=== PATIENT | male | born 1945 | race African-American/Black ===

== ENCOUNTER → 2017-02-21 | Outpatient (CLI) | payer MEDICARE, OTHER ==
[2017-02-21 08:09] LABS: ABSOLUTE EOSINOPHILS # (AUTO) 0.1 10^3/uL (0.0-0.6); ABSOLUTE LYMPHOCYTES (AUTO) 1.9 10^3/uL (0.5-4.7); ABSOLUTE MONOCYTES (AUTO) 0.9 10^3/uL (0.1-1.4); BASOPHILS % (AUTO) 0.7 % (0-2); EOSINOPHILS % (AUTO) 1.5 % (0-6); HEMATOCRIT 35.2 % (37.9-51.0); HGB HCT DIFFERENCE -2.2; LYMPHOCYTES % (AUTO) 32.2 % (13-45); MEAN CORPUSCULAR HEMOGLOBIN 25.4 pg (27.0-33.4); MEAN CORPUSCULAR HGB CONC 31.3 g/dL (32.0-36.0); MEAN CORPUSCULAR VOLUME 81 fl (80-97); MONOCYTES % (AUTO) 14.8 % (3-13); RED BLOOD COUNT 4.33 10^6/uL (4.35-5.55); RED CELL DISTRIBUTION WIDTH 16.4 % (11.5-14.0); SEGMENTED NEUTROPHILS % (AUTO) 50.8 % (42-78); WHITE BLOOD COUNT 5.9 10^3/uL (4.0-10.5)
[2017-02-21 08:47] LABS: ALANINE AMINOTRANSFERASE 21 U/L (21-72); ALBUMIN 4.1 g/dL (3.5-5.0); ALKALINE PHOSPHATASE 76 U/L (38-126); ANION GAP 11 (5-19); ASPARTATE AMINO TRANSFERASE 24 U/L (17-59); BILIRUBIN,DIRECT 0.2 mg/dL (0.0-0.4); BILIRUBIN,TOTAL 0.6 mg/dL (0.2-1.3); BLOOD UREA NITROGEN 16 mg/dL (7-20); CALCIUM 9.2 mg/dL (8.4-10.2); CARBON DIOXIDE 28 mmol/L (22-30); CHLORIDE 105 mmol/L (98-107); CREATININE RESULT 1.27 mg/dL (0.52-1.25); GLUCOSE 111 mg/dL (75-110); POTASSIUM 3.3 mmol/L (3.6-5.0); SODIUM 144.1 mmol/L (137-145); TOTAL PROTEIN 7.6 g/dL (6.3-8.2)
[2017-02-21 09:17] LABS: CARCINOEMBRYONIC ANTIGEN 40.3 ng/mL (<3.0)
== END ==
LOC: LAB 07:39
PROVIDERS: ATTEND Surgery
DX: K63.5 Polyp of colon (principal)
CPT/HCPCS: 36415; 80048; 80076; 82378; 85025

== ENCOUNTER → 2017-02-28 | Outpatient (CLI) | payer MEDICARE, OTHER ==
--- NOTE | 2017-02-28 08:39 | RADIOLOGY REPORT (SQ) ---
EXAM DESCRIPTION: CT CHEST WITHOUT; CT ABD/PELVIS WITH IV ORAL COMPLETED DATE/TIME: 02/28/2017 7:48 am; 02/28/2017 8:08 am REASON FOR STUDY: POLYP OF COLON (K63.5) K63.5 POLYP OF COLON COMPARISON: MRCP 11/29/2015 [facility] MRI abdomen 05/05/2014 CONTRAST TYPE AND DOSE: contrast/concentration: Isovue 370.00 mg/ml; Total Contrast Delivered: 88.0 ml; Total Saline Delivered: 69.0 ml RENAL FUNCTION: Creatinine 1.3 TECHNIQUE: CT scan of the chest performed without intravenous contrast injection. Images reviewed with lung, soft tissue and bone windows. Reconstructed coronal and sagittal MPR image s reviewed. All images stored on PACS. CT scan of the abdomen and pelvis performed with intravenous and with oral contrastusing helical scan manuel technique with dynamic intravenous contrast injection. Images reviewed with lung, soft tissue a nd bone windows. Reconstructed coronal and sagittal MPR images reviewed. Delayed images for evaluat ion of the urinary system also acquired and evaluated. All images stored on PACS. All CT scanners at this facility use dose modulation, iterative reconstruction, and/or weight based d osing when appropriate to reduce radiation dose to as low as reasonably achievable (ALARA). [facility]: Dose Right [facility]: CareDose [facility]: Dose Right [facility]: Teradose 4D [facility]: [employer] RADIATION DOSE: Up-to-date CT equipment and radiation dose reduction techniques were employed. CTDIv ol: 8.9 mGy. DLP: 317 mGy-cm.; Up-to-date CT equipment and radiation dose reduction techniques were e mployed. CTDIvol: 5.8 - 6.6 mGy. DLP: 636 mGy-cm. . LIMITATIONS: None. FINDINGS: CHEST: LUNGS AND PLEURA: Obstructive lung disease. Bandlike scarring right base just above the right hemidi aphragm. No worrisome pulmonary nodules. No pleural effusion. No pneumothorax. HILAR AND MEDIASTINAL STRUCTURES: No identified masses or abnormal nodes. Small hiatal hernia HEART AND VASCULAR STRUCTURES: No aneurysm or dissection. No central pulmonary emboli. No pericardi al effusion. Minimal coronary artery calcification. HARDWARE: None. THYROID AND OTHER SOFT TISSUES: No masses. No adenopathy. BONES: No significant finding. OTHER: No other significant finding. ABDOMEN AND PELVIS: LIVER: Multiple low-attenuation liver masses are present worrisome for metastatic disease, the larges t is along the subdiaphragmatic right lobe liver 2.5 cm in size. SPLEEN: Normal size. No focal lesions. PANCREAS: No masses. No significant calcifications. No adjacent inflammation or peripancreatic fluid collections. Pancreatic duct is mildly dilated, similar compared to previous MRI exams. GALLBLADDER: Surgically absent ADRENAL GLANDS: No significant masses or asymmetry. RIGHT KIDNEY AND URETER: No solid masses. No significant calcification. No hydronephrosis or hydroure ter. LEFT KIDNEY AND URETER: No solid masses. 2.7 cm left upper pole renal cyst, 5.5 cm left midpole elijah l cyst, 6 cm left lower pole renal cyst. No significant calcification. No hydronephrosis or hydroure ter. AORTA AND VESSELS: No aneurysm. No dissection. Renal arteries, SMA, celiac without stenosis. RETROPERITONEUM: No retroperitoneal adenopathy, hemorrhage or masses. BOWEL AND PERITONEAL CAVITY: A 4 cm mass is present ascending colon about 7 cm distal to the ileoceca l valve. This is best shown on axial image 44 and coronal image 15. There is an adjacent 1.6 x 0.8 cm right pericolic lymph node on axial image 47. There is oral contrast throughout the remainder of the gastrointestinal tract which is otherwise unre markable. APPENDIX: Normal. ABDOMINAL WALL: No masses. No hernias. BONES: No significant or acute findings. PELVIS: Trace physiologic cul-de-sac pelvic fluid. Bladder, prostate unremarkable. No pelvic adenop athy. No other significant finding. IMPRESSION: No CT evidence of metastatic disease to the chest 4 cm ascending colon mass with liver metastatic lesions. TECHNICAL DOCUMENTATION: JOB ID: [id number] Quality ID # [id number]: Final reports with documentation of one or more dose reduction techniques (e.g., Au tomated exposure control, adjustment of the mA and/or kV according to patient size, use of iterative reconstruction technique) 2010 [employer]- All Rights Reserved
== END ==
LOC: RAD 07:15
PROVIDERS: ATTEND Surgery
DX: K63.5 Polyp of colon (principal); J44.9 Chronic obstructive pulmonary disease, unspecified
CPT/HCPCS: 71250; 74177

== ENCOUNTER 2018-08-17 13:14 | Inpatient (IN) | payer OTHER, MEDICARE ==
--- NOTE | 2018-08-17 14:48 | ER Document Report ---
ED General - General Mode of Arrival: Medic Information source: Patient, Relative TRAVEL OUTSIDE OF THE [place] IN LAST 30 DAYS: No <KERRY JOEL - Last Filed: 08/17/18 23:37> <AJITH CULP - Last Filed: 08/17/18 23:44> - General Chief Complaint: General Weakness Stated Complaint: WEAKNESS Time Seen by Provider: 08/17/18 14:24 Notes: 72-year-old male with stage IV colorectal cancer with metastasis to the liver, intra-abdominal nodes, and intrahepatic bile ducts that presents today with complaints of shortness of breath and abdominal distention. Patient is currently followed in [place] by oncologist Dr. Hollingsworth and he is taking chemo by mouth. at bedside states that the patient has not been eating for 1 week other than [employer] formula powder because he is not hungry although he is still requesting water. Patient does endorse the fact that he is eating because he does not feel hungry. Patient states that he has been having normal bowel movements and passing gas. Patient states his abdomen and legs began swelling 3 weeks ago which has increased since gradually since onset. Patient states he feels generally weak and shaky when he stands up. Patient denies any nausea or vomiting. (KERRY JOEL) - Related Data Allergies/Adverse Reactions: No Known Allergies Allergy (Verified 08/17/18 13:34) Past Medical History - General Information source: Patient - Social History Smoking Status: Former Smoker Chew tobacco use (# tins/day): No Frequency of alcohol use: None Drug Abuse: None Lives with: Family Family History: Reviewed & Not Pertinent Patient has suicidal ideation: No Patient has homicidal ideation: No - Past Medical History Cardiac Medical History: Reports: Hx Hypertension Malignancy Medical History: Reports Hx Colorectal Cancer - stage IV with metastasis to the liver with intraabdominal nodes Past Surgical History: Reports: Hx Bowel Surgery - colon - Immunizations Hx Diphtheria, Pertussis, Tetanus Vaccination: Yes <KERRY JOEL - Last Filed: 08/17/18 23:37> Review of Systems - Review of Systems Constitutional: No symptoms reported EENT: No symptoms reported Cardiovascular: No symptoms reported Respiratory: See HPI, Short of breath Gastrointestinal: See HPI, Abdomen distended, Abdominal pain. denies: Diarrhea, Nausea, Vomiting, Constipation - states he has been having normal bowel movements Genitourinary: No symptoms reported Male Genitourinary: No symptoms reported Musculoskeletal: No symptoms reported Skin: No symptoms reported Hematologic/Lymphatic: No symptoms reported Neurological/Psychological: No symptoms reported -: Yes All other systems reviewed and negative <KERRY JOEL - Last Filed: 08/17/18 23:37> Physical Exam <KERRY JOEL - Last Filed: 08/17/18 23:37> - Vital signs Vitals: Temp Pulse Resp BP Pulse Ox 97.5 F 96 18 112/62 95 08/17/18 13:30 08/17/18 13:30 08/17/18 13:30 08/17/18 13:30 08/17/18 13:30 - Notes Notes: PHYSICAL EXAM GENERAL: Alert, interacts well. Appears uncomfortable. Cachectic. HEAD: Normocephalic, atraumatic. EYES: Pupils equal, round, and reactive to light. Extraocular movements intact. ENT: Oral mucosa moist, tongue midline. NECK: Full range of motion. Supple. Trachea midline. LUNGS: Clear to auscultation bilaterally, no wheezes, rales, or rhonchi. No respiratory distress. HEART: Regular rate and rhythm. No murmurs, gallops, or rubs. ABDOMEN: Semi-firm, not rigid, distended, epigastric and suprapubic tenderness with palpation, tympanic to percussion, high pitched bowel sounds present in all four quadrants. EXTREMITIES: Moves all 4 extremities spontaneously. 2+ pitting edema bilaterally. Radial and dorsalis pedis pulses 2/4 bilaterally. No cyanosis. NEUROLOGICAL: Alert and oriented x3. Normal speech. PSYCH: Normal affect, normal mood. SKIN: Warm and dry. No rashes or lesions noted. (KERRY JOEL) Course - Laboratory Result Diagrams: 08/17/18 16:20 08/17/18 16:20 <KERRY JOEL - Last Filed: 08/17/18 23:37> - Laboratory Result Diagrams: 08/17/18 16:20 08/17/18 16:20 <AJITH CULP - Last Filed: 08/17/18 23:44> - Re-evaluation Re-evalutation: 08/17/18 16:05 Raymond Bauer our retail assistant store manager has spoken with the patient and the family, she did find that there are inpatient hospice beds available however the patient has now twice stated once when asked by me and once when asked by Raymond Bauer that he does not want to go to hospice. At this point his and friend both feel that he would be better served in hospice however the patient is adamant that he does not want to go to hospice at this time. We have provided them with resources on how to contact hospice in the future should he want to go but at present we will continue with medical workup. Patient's abdominal x-ray does show gaseous does not distention of the large intestine, this could be obstructive or from a large amount of stool given his opioid therapy or from sigmoid volvulus, we will trial a soap suds enema with mineral oil first and if this does not relieve his pain we will proceed with CAT scan. Patient also has a right lower lobe pneumonia versus atelectasis. We will start antibiotics for this. 08/17/18 22:35 No significant relief from the enema, abdomen is still distended, patient states he feels a little bit better but there is no. CT scan continues to demonstrate bibasilar pleural effusions greater on the right than the left and pneumonia in the right lung base, innumerable masses through the liver consistent with extensive metastatic disease, large amount of liquefied stool within the remaining colon, gas and stool in the rectal vault, small bowel is not distended, somewhat diffuse gaseous distention of the colon without discrete transition point favoring colonic ileus with partial or incomplete obstruction not excluded entirely. Patient will be discussed with hospitalist for possible admission. 08/17/18 23:42 Dr. Benz agrees to admit the patient to his service on the telemetry care unit. (AJITH CULP) - Vital Signs Vital signs: Temp Pulse Resp BP Pulse Ox 97.5 F 96 18 92/68 L 92 08/17/18 13:30 08/17/18 13:30 08/17/18 13:30 08/17/18 23:14 08/17/18 19:00 - Laboratory Laboratory results interpreted by me: 08/17/18 08/17/18 08/17/18 16:20 16:20 22:10 WBC 13.2 H RDW 17.6 H Plt Count 133 L Seg Neuts % (Manual) 82 H Lymphocytes % (Manual) 8 L Abs Neuts (Manual) 10.8 H Carbon Dioxide 19 L BUN 82 H Creatinine 1.71 H Est GFR ( Amer) 48 L Est GFR (Non-Af Amer) 39 L Glucose 147 H Total Bilirubin 8.2 H Direct Bilirubin 6.8 H AST 191 H Alkaline Phosphatase 346 H Albumin 2.9 L Urine Urobilinogen 2.0 H Discharge <KERRY JOEL - Last Filed: 08/17/18 23:37> - [facility]: Telemetry <AJITH CULP - Last Filed: 08/17/18 23:44> - Discharge Clinical Impression: Stage IV carcinoma of colon Right lower lobe pneumonia Qualifiers: Pneumonia type: due to unspecified organism Qualified Code(s): J18.1 - Lobar pneumonia, unspecified organism Acute renal failure Qualifiers: Acute renal failure type: unspecified Qualified Code(s): N17.9 - Acute kidney failure, unspecified Condition: Fair Disposition: ADMITTED INPATIENT [facility]errals: [facility] [[facility]] - Follow up as needed Scribe Attestation: 08/17/18 23:44 I personally performed the services described in the documentation, reviewed and edited the documentation which was dictated to the scribe in my presence, and it accurately records my words and actions. (AJITH CULP) Scribe Documentation - Scribe Written by Sanaz:: Sanaz Dasilva, 08/17/2018 1556 acting as scribe for :: Stephen <KERRY JOEL - Last Filed: 08/17/18 23:37>
[2018-08-17] MEDS ORDERED: HYDROMORPHONE HCL INJ/PF 2 MG/ML AMPULE IV ONE ×2 (14:55→20:37)
--- NOTE | 2018-08-17 15:44 | RADIOLOGY REPORT (SQ) ---
EXAM DESCRIPTION: CHEST 2 VIEWS COMPLETED DATE/TIME: 08/17/2018 3:25 pm REASON FOR STUDY: SOB COMPARISON: CT abdomen and pelvis 02/28/2017 and chest radiograph 06/01/2013 EXAM PARAMETERS: NUMBER OF VIEWS: two views TECHNIQUE: Digital Frontal and Lateral radiographic views of the chest acquired. RADIATION DOSE: NA LIMITATIONS: none FINDINGS: LUNGS AND PLEURA: Low lung volumes with right lower lobe atelectasis versus consolidation. No pneumothorax. MEDIASTINUM AND HILAR STRUCTURES: No masses or contour abnormalities. HEART AND VASCULAR STRUCTURES: Heart normal size. No evidence for failure. BONES: No acute findings. HARDWARE: A left anterior chest wall Port-A-Cath terminates in the region of the cavoatrial junction. OTHER: The splenic flexure and descending colon are gas distended. IMPRESSION: 1. Low lung volumes with right lower lobe consolidation versus atelectasis. 2. Gaseous distension of the splenic flexure and descending colon. TECHNICAL DOCUMENTATION: JOB ID: [id number] [employer]- All Rights Reserved Reading location - IP/workstation name: [email or web address]
--- NOTE | 2018-08-17 15:51 | RADIOLOGY REPORT (SQ) ---
EXAM DESCRIPTION: ABDOMEN 2 VIEWS COMPLETED DATE/TIME: 08/17/2018 3:24 pm REASON FOR STUDY: abdominal distention COMPARISON: CT abdomen and pelvis with intravenous and oral contrast 02/28/2017. NUMBER OF VIEWS: Two views. TECHNIQUE: Supine and erect/decubitus radiographic images of the abdomen acquired. LIMITATIONS: None. FINDINGS: FREE AIR: No pneumoperitoneum. . LUNG BASES: Right basilar infiltrate. LARGE AND SMALL BOWEL: There is evidence of gaseous distension of the descending colon and proximal sigmoid colon. Gas within the transverse colon is seen. Scattered small bowel gas is noted. Surgic al clips right abdomen. No free intraperitoneal air. The bowel gas pattern is similar to findings n oted on CT abdomen and pelvis 02/28/2017. CALCIFICATIONS: No suspicious calcifications. SOFT TISSUES: No gross mass or suggestion of organomegaly. HARDWARE: None in the abdomen. BONES: No acute fracture. No worrisome bone lesions. OTHER: Dual lumen catheter overlying right atrium. . IMPRESSION: Right basilar infiltrate. Gaseous distention of descending and proximal sigmoid colon. The possibility of distal colonic obstruction or sigmoid volvulus could not be excluded. Consider C T of abdomen and pelvis with contrast. TECHNICAL DOCUMENTATION: JOB ID: [id number] SC-[id number] 2010 [employer]- All Rights Reserved Reading location - IP/workstation name: [email or web address]
[2018-08-17] MEDS ORDERED: MINERAL OIL 30 ML UDCUP PR ONE (15:57)
[2018-08-17 16:40] LABS: HEMATOCRIT 42.7 % (37.9-51.0); HEMOGLOBIN 14.3 g/dL (13.5-17.0); MEAN CORPUSCULAR HEMOGLOBIN 31.3 pg (27.0-33.4); MEAN CORPUSCULAR HGB CONC 33.4 g/dL (32.0-36.0); MEAN CORPUSCULAR VOLUME 94 fl (80-97); PLATELET COUNT 133 10^3/uL (150-450); RED BLOOD COUNT 4.55 10^6/uL (4.35-5.55); RED CELL DISTRIBUTION WIDTH 17.6 % (11.5-14.0); WHITE BLOOD COUNT 13.2 10^3/uL (4.0-10.5)
[2018-08-17 16:53] LABS: ALANINE AMINOTRANSFERASE 42 U/L (21-72); ALBUMIN 2.9 g/dL (3.5-5.0); ALKALINE PHOSPHATASE 346 U/L (38-126); ANION GAP 13 (5-19); ASPARTATE AMINO TRANSFERASE 191 U/L (17-59); BILIRUBIN,DIRECT 6.8 mg/dL (0.0-0.4); BILIRUBIN,TOTAL 8.2 mg/dL (0.2-1.3); BLOOD UREA NITROGEN 82 mg/dL (7-20); CALCIUM 9.7 mg/dL (8.4-10.2); CARBON DIOXIDE 19 mmol/L (22-30); CHLORIDE 107 mmol/L (98-107); GLUCOSE 147 mg/dL (75-110); POTASSIUM 4.9 mmol/L (3.6-5.0); SODIUM 139.2 mmol/L (137-145); TOTAL PROTEIN 7.2 g/dL (6.3-8.2)
[2018-08-17 17:01] LABS: ABSOLUTE LYMPHOCYTES# (MANUAL) 1.1 10^3/uL (0.5-4.7); ABSOLUTE MONOCYTES # (MANUAL) 1.3 10^3/uL (0.1-1.4); ABSOLUTE NEUTROPHILS# (MANUAL) 10.8 10^3/uL (1.7-8.2); BASOPHILS % (MANUAL) 0 % (0-2); EOSINOPHILS % (MANUAL) 0 % (0-6); LYMPHOCYTES % (MANUAL) 8 % (13-45); MONOCYTES % (MANUAL) 10 % (3-13); SEGMENTED NEUTROPHILS % (MAN) 82 % (42-78); TOTAL CELLS COUNTED 100
[2018-08-17 17:02] LABS: ANISOCYTOSIS 1+; PLATELET COMMENT DECREASED; POIKILOCYTOSIS SLIGHT; TARGET CELLS SLIGHT
[2018-08-17] MEDS: CEFEPIME 2 GM/D5W RTU 2 GM/50 ML RTUPB IV SCH (17:39)
[2018-08-17] MEDS ORDERED: NORMAL SALINE 1000 ML 1,000 ML IV ONE (17:40)
[2018-08-17] MEDS ORDERED: LEVOFLOXACIN 750 MG/D5W RTU 750 MG/150 ML RTUPB IV SCH (18:00)
--- NOTE | 2018-08-17 22:09 | RADIOLOGY REPORT (SQ) ---
EXAM DESCRIPTION: CT ABDOMEN PELVIS WITH IV CONTRAST COMPLETED DATE/TME: 08/17/2018 00:00 CLINICAL HISTORY: 72 years, Male, possible sigmoid volvulus vs obstruction from CA COMPARISON: Prior TC 02/28/2017 TECHNIQUE: 428 Images stored on PACS. All CT scanners at this facility use dose modulation, iterative reconstruction, and/or weight based dosing when appropriate to reduce radiation dose to as low as reasonably achievable (ALARA). [facility]: Dose Right [facility]: CareDose [facility]: Dose Right [facility]: Teradose 4D [facility]: R[employer] [facility] LIMITATIONS: None. FINDINGS: Limited evaluation of the lung bases demonstrates bibasilar pleural effusions, greater on the right. Consolidative change in the posterior right lung base. Partial visualization of necrotic adenopathy in the precarinal and subcarinal regions. Osseous structures of the abdomen/pelvis are grossly intact. Vague lucency of the L3 vertebral body. Metastatic disease is not excluded. Innumerable masses throughout the liver consistent with extensive metastatic disease. Heterogeneous appearance to the spleen for which splenic metastasis is not excluded although this likely reflects phase of contrast on initial imaging. The adrenal glands, pancreas are unremarkable. Simple left renal cysts. The kidneys are otherwise unremarkable. The gallbladder is present. Diffuse anasarca. Nonenlarged but conspicuous lymph nodes of the gastrohepatic ligament and upper abdomen. Postsurgical changes with suture material associated with the right colon. Large amount of liquefied stool within the remaining colon. Gas and stool within the rectal vault. Small bowel is not distended. There is somewhat diffuse gaseous distention of the colon, without a discrete transition point favoring colonic ileus with partial or incomplete obstruction not excluded entirely. Follow-up recommended. No free air.. IMPRESSION: While there is mild distention of the colon, no discrete transition point. Liquefied stool and gas throughout the colon. Findings favor colonic ileus with partial or incomplete obstruction not excluded entirely. Close follow-up recommended. Extensive hepatic metastases. Partial visualization of necrotic, likely metastatic lymph nodes within the mediastinum. Small bibasilar effusions, greater on the right with consolidative change in the posterior right lung base. Nonenlarged but conspicuous lymph nodes in the upper abdomen. Diffuse anasarca. Small volume of ascites. TECHNICAL DOCUMENTATION: Quality ID # [id number]: Final reports with documentation of one or more dose reduction techniques (e.g., Automated exposure control, adjustment of the mA and/or kV according to patient size, use of iterative reconstruction technique) copyright 2010 [employer]- All Rights Reserved
[2018-08-17] MEDS ORDERED: METOCLOPRAMIDE HCL INJ/PF 10 MG/2 ML SDV IV ONE (22:21)
[2018-08-17 22:52] LABS: APPEARANCE,URINE CLEAR; BILIRUBIN,URINE NEGATIVE (NEGATIVE); COLOR,URINE AMBER; GLUCOSE, URINE NEGATIVE (NEGATIVE); KETONES,URINE NEGATIVE (NEGATIVE); LEUKOCYTE ESTERASE,URINE NEGATIVE (NEGATIVE); NITRITE,URINE NEGATIVE (NEGATIVE); PROTEIN,URINE NEGATIVE (NEGATIVE); URINE SPECIFIC GRAVITY 1.017
[2018-08-17] MEDS ORDERED: NORMAL SALINE 1000 ML 1,000 ML IV PRN (23:45)
[2018-08-17] MEDS ORDERED: OXYCODONE HCL IR 5 MG TABLET PO PRN (23:53)
[2018-08-17] MEDS ORDERED: MAG HYDROX/AL HYDROX/SIMETH SUSP 30 ML UDCUP PO PRN (23:54)
[2018-08-17] MEDS ORDERED: IPRATROPIUM/ALBUTEROL 0.5-2.5 MG/3 ML AMPUL NEB PRN (23:54)
[2018-08-17] MEDS ORDERED: MAGNESIUM HYDROXIDE SUSP 30 ML UDCUP PO PRN (23:54)
--- NOTE | 2018-08-18 01:20 | PDOC H&P ---
History of Present Illness Admission Date/PCP: 08/18/18 00:22 [facility] Patient complains of: Weakness and abdominal distention History of Present Illness: COLE MOTA is a 72 year old male with a past medical history of stage IV colorectal cancer with widespread metastasis undergoing oral chemotherapy with Dr. Hollingsworth in [place]. He presents with generalized weakness, shortness of breath and abdominal distention. Patient is extremely ill appearing cachectic with temporal wasting. requests hospice consult in the emergency room but ultimately declined by the patient. Workup reveals bilateral lower lobe infiltrate with effusion, widespread metastasis of the liver, liquefied stool in the colon with gas suggesting ileus. He receives empiric antibiotics and Dilaudid and referred to the hospitalist for admission. Patient is currently sedated and comfortable but unable to cooperate in exam. Records from [facility] requested. Past Medical History Cardiac Medical History: Reports: Hypertension Malignancy Medical History: Reports: Colorectal Cancer - stage IV with metastasis to the liver with intraabdominal nodes Social History Information Source: Relative, Emergency Med Personnel, [facility] Records Lives with: Spouse/Significant other Smoking Status: Former Smoker - Advance Directive Resuscitation Status: Full Code Family History Parental Family History Reviewed: Yes Children Family History Reviewed: Yes Sibling(s) Family History Reviewed.: Yes Medication/Allergy Home Medications: Lisinopril [Zestril] 40 mg PO DAILY 08/17/18 Nifedipine [Nifedipine ER] 90 mg PO DAILY 08/17/18 Oxycodone HCl [Oxy-Ir 5 mg Tablet] 5 mg PO Q6H PRN 08/17/18 Regorafenib [Stivarga] 40 mg PO DAILY 08/17/18 Sennosides [Senokotxtra] 17.2 mg PO DAILY 08/17/18 Allergies/Adverse Reactions: No Known Allergies Allergy (Verified 08/17/18 13:34) Review of Systems ROS unobtainable: Due to mental status - Patient sedated unable to cooperate with exam Constitutional: ABSENT: chills, fever(s), headache(s), weight gain, weight loss Eyes: ABSENT: visual disturbances Ears: ABSENT: hearing changes Cardiovascular: ABSENT: chest pain, dyspnea on exertion, edema, orthropnea, palpitations Respiratory: ABSENT: cough, hemoptysis Gastrointestinal: ABSENT: abdominal pain, constipation, diarrhea, hematemesis, hematochezia, nausea, vomiting Genitourinary: ABSENT: dysuria, hematuria Musculoskeletal: ABSENT: joint swelling Integumentary: ABSENT: rash, wounds Neurological: ABSENT: abnormal gait, abnormal speech, confusion, dizziness, focal weakness, syncope Psychiatric: ABSENT: anxiety, depression, homidical ideation, suicidal ideation Endocrine: ABSENT: cold intolerance, heat intolerance, polydipsia, polyuria Hematologic/Lymphatic: ABSENT: easy bleeding, easy bruising Physical Exam Vital Signs: Temp Pulse Resp BP Pulse Ox 97.5 F 96 18 92/68 L 92 08/17/18 13:30 08/17/18 13:30 08/17/18 13:30 08/17/18 23:14 08/17/18 19:00 Intake & Output 08/16/18 08/17/18 08/18/18 11:59 11:59 11:59 Intake Total 2250 Balance 2250 Weight 72.3 kg General appearance: PRESENT: no acute distress, disheveled, thin, other - Extreme cachexia. ABSENT: cooperative, well-developed, well-nourished Head exam: PRESENT: atraumatic, normocephalic Eye exam: PRESENT: conjunctiva pink, EOMI, PERRLA. ABSENT: scleral icterus Ear exam: PRESENT: normal external ear exam Mouth exam: PRESENT: dry mucosa, tongue midline. ABSENT: laceration Neck exam: ABSENT: carotid bruit, JVD, lymphadenopathy, thyromegaly Respiratory exam: PRESENT: crackles, decreased breath sounds, prolonged expiratory phas, retraction, symmetrical, tachypnea Cardiovascular exam: PRESENT: RRR. ABSENT: diastolic murmur, rubs, systolic murmur Pulses: PRESENT: normal dorsalis pedis pul Vascular exam: PRESENT: normal capillary refill GI/Abdominal exam: PRESENT: normal bowel sounds, soft. ABSENT: distended, guarding, mass, organolmegaly, rebound, tenderness Rectal exam: PRESENT: deferred Extremities exam: PRESENT: full ROM, +2 edema. ABSENT: calf tenderness, clubbing, pedal edema, tenderness Neurological exam: PRESENT: altered, CN II-XII grossly intact Psychiatric exam: PRESENT: unusual affect, other - Sedated. ABSENT: homicidal ideation, suicidal ideation Skin exam: PRESENT: dry, intact, warm. ABSENT: cyanosis, rash Results Laboratory Results: 08/17/18 16:20 08/17/18 16:20 08/17/18 08/17/18 08/17/18 16:20 16:20 22:10 WBC 13.2 H RBC 4.55 Hgb 14.3 Hct 42.7 MCV 94 MCH 31.3 MCHC 33.4 RDW 17.6 H Plt Count 133 L Seg Neutrophils % Not Reportable Lymphocytes % Not Reportable Monocytes % Not Reportable Eosinophils % Not Reportable Basophils % Not Reportable Absolute Neutrophils Not Reportable Absolute Lymphocytes Not Reportable Absolute Monocytes Not Reportable Absolute Eosinophils Not Reportable Absolute Basophils Not Reportable Sodium 139.2 Potassium 4.9 Chloride 107 Carbon Dioxide 19 L Anion Gap 13 BUN 82 H Creatinine 1.71 H Est GFR ( Amer) 48 L Est GFR (Non-Af Amer) 39 L Glucose 147 H Calcium 9.7 Total Bilirubin 8.2 H AST 191 H ALT 42 Alkaline Phosphatase 346 H Total Protein 7.2 Albumin 2.9 L Urine Color BORIS Urine Appearance CLEAR Urine pH 5.0 Ur Specific [place] 1.017 Urine Protein NEGATIVE Urine Glucose (UA) NEGATIVE Urine Ketones NEGATIVE Urine Blood NEGATIVE Urine Nitrite NEGATIVE Ur Leukocyte Esterase NEGATIVE Urine WBC (Auto) 3 Urine RBC (Auto) 1 Impressions: Abdomen/Pelvis CT 08/17/18 00:00 IMPRESSION: While there is mild distention of the colon, no discrete transition point. Liquefied stool and gas throughout the colon. Findings favor colonic ileus with partial or incomplete obstruction not excluded entirely. Close follow-up recommended. Extensive hepatic metastases. Partial visualization of necrotic, likely metastatic lymph nodes within the mediastinum. Small bibasilar effusions, greater on the right with consolidative change in the posterior right lung base. Nonenlarged but conspicuous lymph nodes in the upper abdomen. Diffuse anasarca. Small volume of ascites. TECHNICAL DOCUMENTATION: Quality ID # 436: Final reports with documentation of one or more dose reduction techniques (e.g., Automated exposure control, adjustment of the mA and/or kV according to patient size, use of iterative reconstruction technique) copyright 2011 [employer]- All Rights Reserved Abdomen X-Ray 08/17/18 14:48 IMPRESSION: Right basilar infiltrate. Gaseous distention of descending and proximal sigmoid colon. The possibility of distal colonic obstruction or sigmoid volvulus could not be excluded. Consider CT of abdomen and pelvis with contrast. Chest X-Ray 08/17/18 14:48 IMPRESSION: 1. Low lung volumes with right lower lobe consolidation versus atelectasis. 2. Gaseous distension of the splenic flexure and descending colon. Assessment & Plan - Diagnosis (1) Acute renal failure Qualifiers: Acute renal failure type: unspecified Qualified Code(s): N17.9 - Acute kidney failure, unspecified Is this a current diagnosis for this admission?: Yes Plan: Likely prerenal secondary to poor p.o. intake, IV fluid challenge, reevaluate chemistry (2) Right lower lobe pneumonia Qualifiers: Pneumonia type: due to unspecified organism Qualified Code(s): J18.1 - Lobar pneumonia, unspecified organism Is this a current diagnosis for this admission?: Yes Plan: Possibly atelectasis, associated with likely malignant effusion. Empiric antibiotics, pneumonia care set, follow-up CBC (3) Stage IV carcinoma of colon Is this a current diagnosis for this admission?: Yes Plan: Patient is bedridden, extremely cachectic with multisystem organ failure. Highly doubt aggressive measures will yield beneficial result. Patient's requested hospitalization initially for hospice as she is afraid he will at home, ultimately declined secondary to patient's wishes. Re-consult hospice and oncology. - Time Time Spent: 50 to 70 Minutes - Inpatient Certification Medical Necessity: Need Close Monitoring Due to Risk of Patient Decompensation
[2018-08-18] MEDS: IPRATROPIUM/ALBUTEROL 0.5-2.5 MG/3 ML AMPUL NEB SCH ×4 (03:33→20:55)
[2018-08-18] MEDS: HYDROMORPHONE HCL INJ/PF 2 MG/ML AMPULE SUBCUT PRN ×3 (04:58→22:56)
[2018-08-18] MEDS ORDERED: CEFEPIME 2 GM/D5W RTU 2 GM/50 ML RTUPB IV ONE (04:59)
[2018-08-18] MEDS: CEFEPIME 2 GM/D5W RTU 2 GM/50 ML RTUPB IV SCH (05:02)
[2018-08-18] MEDS: HEPARIN SOD (PORCINE) 5,000 UNIT/ML 1 ML SYRINGE SUBCUT SCH ×2 (05:43→15:26)
[2018-08-18 06:43] LABS: HEMATOCRIT 41.3 % (37.9-51.0); MEAN CORPUSCULAR HEMOGLOBIN 31.7 pg (27.0-33.4); MEAN CORPUSCULAR HGB CONC 33.8 g/dL (32.0-36.0); MEAN CORPUSCULAR VOLUME 94 fl (80-97); PLATELET COUNT 114 10^3/uL (150-450); RED CELL DISTRIBUTION WIDTH 17.9 % (11.5-14.0); WHITE BLOOD COUNT 13.3 10^3/uL (4.0-10.5)
[2018-08-18 06:56] LABS: ALANINE AMINOTRANSFERASE 44 U/L (21-72); ALBUMIN 2.7 g/dL (3.5-5.0); ALKALINE PHOSPHATASE 318 U/L (38-126); ANION GAP 15 (5-19); ASPARTATE AMINO TRANSFERASE 177 U/L (17-59); BILIRUBIN,DIRECT 7.2 mg/dL (0.0-0.4); BILIRUBIN,TOTAL 8.4 mg/dL (0.2-1.3); BLOOD UREA NITROGEN 86 mg/dL (7-20); CALCIUM 9.2 mg/dL (8.4-10.2); CARBON DIOXIDE 16 mmol/L (22-30); CHLORIDE 107 mmol/L (98-107); GLUCOSE 110 mg/dL (75-110); POTASSIUM 5.5 mmol/L (3.6-5.0); SODIUM 138.4 mmol/L (137-145)
[2018-08-18 07:59] LABS: ABSOLUTE LYMPHOCYTES# (MANUAL) 0.7 10^3/uL (0.5-4.7); ABSOLUTE MONOCYTES # (MANUAL) 1.2 10^3/uL (0.1-1.4); ABSOLUTE NEUTROPHILS# (MANUAL) 11.2 10^3/uL (1.7-8.2); ANISOCYTOSIS 2+; BASOPHILS % (MANUAL) 0 % (0-2); EOSINOPHILS % (MANUAL) 2 % (0-6); HYPOCHROMASIA 2+; LYMPHOCYTES % (MANUAL) 5 % (13-45); METAMYELOCYTES % (MANUAL) 1 % (0); MONOCYTES % (MANUAL) 9 % (3-13); MYELOCYTES % (MANUAL) 2 % (0); POLYCHROMASIA 1+; SEGMENTED NEUTROPHILS % (MAN) 81 % (42-78); TARGET CELLS 1+; TOTAL CELLS COUNTED 100
[2018-08-18 08:00] LABS: PLATELET COMMENT DECREASED; TOXIC GRANULATION SLIGHT; TOXIC VACUOLATION PRESENT
[2018-08-18] MEDS ORDERED: DOCUSATE SODIUM 100 MG CAPSULE PO SCH (10:00)
[2018-08-18] MEDS ORDERED: NIFEDIPINE 30 MG TAB.ER.24 PO SCH (10:00)
[2018-08-18] MEDS ORDERED: (PENDING PHARMACY ID) (Sennosides [Senokot] 17.2 MG) PO SCH (10:00)
--- NOTE | 2018-08-18 12:47 | PDOC CONSULTATION ---
Consultation Consult Date: 08/18/18 Attending physician:: HUSSEIN DOUGLAS Consult reason:: Stage IV colon cancer with multiple liver metastases History of Present Illness Admission Date/PCP: 08/18/18 00:22 [facility] Patient complains of: Abdominal pain, weakness History of Present Illness: COLE MOTA is a 72 year old male with known history of stage IV colon cancer being cared for by Dr. Cha of the [facility] in [place], we do not have full records yet but it does appear that he is now had this diagnosis for over a year and has been through multiple courses of IV chemotherapy, his tells me that recently he progressed off all IV chemotherapeutic options and is now on oral chemotherapy probably LONSURF or STIVARGA, over the last 3 weeks is gotten much weaker, not getting out of bed and ultimately she brought him in because he was unable to get out of bed. Upon presentation CT imaging indicated diffuse liver disease, ascites, transaminases were elevated, bilirubin is now up to 8 indicating overt liver failure. Today he appears more and more obtunded, does open his eyes to command and answers a few questions but does not really answer much on decision such as comfort care or CODE STATUS today. Of note, I discussed his case extensively with ED physician, and she had questioned him about his desires about comfort care and hospice, DNR and he was not ready to accept this at this point. Unfortunately also, he has been now for only about 6 months, and his does not really have a relationship with the rest of his family, so she is concerned about making decisions for him as well. Past Medical History Cardiac Medical History: Reports: Hypertension Malignancy Medical History: Reports: Colorectal Cancer - stage IV with metastasis to the liver with intraabdominal nodes Past Surgical History Past Surgical History: Reports: Other - Liver biopsy Social History Information Source: Relative Lives with: Spouse/Significant other Smoking Status: Former Smoker Frequency of Alcohol Use: None Hx Recreational Drug Use: No Drugs: None - Advance Directive Resuscitation Status: Full Code Family History Family History: Reviewed & Not Pertinent Parental Family History Reviewed: Yes Children Family History Reviewed: Yes Sibling(s) Family History Reviewed.: Yes Medication/Allergy Home Medications: Lisinopril [Zestril] 40 mg PO DAILY 08/17/18 Oxycodone HCl [Oxy-Ir 5 mg Tablet] 5 mg PO Q6HP PRN 08/17/18 Regorafenib [Stivarga] 80 mg PO DAILY 08/17/18 Nifedipine [Adalat CC 90 mg Tablet] 90 mg PO DAILY 08/18/18 Sennosides/Docusate Sodium [Senna-S Laxative Tablet] 2 each PO DAILY 08/18/18 Allergies/Adverse Reactions: No Known Allergies Allergy (Verified 08/18/18 10:35) Review of Systems Constitutional: PRESENT: anorexia, fatigue, weakness, weight loss Gastrointestinal: PRESENT: abdominal pain, bloating, nausea, vomiting Musculoskeletal: PRESENT: back pain Neurological: PRESENT: frequent falls, lack of coordination, weakness Physical Exam Vital Signs: Temp Pulse Resp BP Pulse Ox 98.1 F 98 16 90/62 L 95 08/18/18 11:48 08/18/18 11:48 08/18/18 11:48 08/18/18 11:48 08/18/18 11:48 Intake & Output 08/17/18 08/18/18 08/19/18 06:59 06:59 06:59 Intake Total 2300 Balance 2300 Weight 72 kg General appearance: PRESENT: disheveled, thin Mouth exam: PRESENT: dry mucosa Neck exam: ABSENT: carotid bruit, JVD, lymphadenopathy, thyromegaly Respiratory exam: PRESENT: clear to auscultation leonila. ABSENT: rales, rhonchi, wheezes Cardiovascular exam: PRESENT: RRR. ABSENT: diastolic murmur, rubs, systolic murmur GI/Abdominal exam: PRESENT: ascites, distended Rectal exam: PRESENT: deferred Neurological exam: PRESENT: altered Psychiatric exam: PRESENT: depressed, flat affect Results Laboratory Results: 08/18/18 05:57 08/18/18 05:57 08/17/18 08/17/18 08/17/18 16:20 16:20 22:10 WBC 13.2 H RBC 4.55 Hgb 14.3 Hct 42.7 MCV 94 MCH 31.3 MCHC 33.4 RDW 17.6 H Plt Count 133 L Seg Neutrophils % Not Reportable Lymphocytes % Not Reportable Monocytes % Not Reportable Eosinophils % Not Reportable Basophils % Not Reportable Absolute Neutrophils Not Reportable Absolute Lymphocytes Not Reportable Absolute Monocytes Not Reportable Absolute Eosinophils Not Reportable Absolute Basophils Not Reportable Sodium 139.2 Potassium 4.9 Chloride 107 Carbon Dioxide 19 L Anion Gap 13 BUN 82 H Creatinine 1.71 H Est GFR ( Amer) 48 L Est GFR (Non-Af Amer) 39 L Glucose 147 H Calcium 9.7 Total Bilirubin 8.2 H AST 191 H ALT 42 Alkaline Phosphatase 346 H Total Protein 7.2 Albumin 2.9 L Urine Color BORIS Urine Appearance CLEAR Urine pH 5.0 Ur Specific [place] 1.017 Urine Protein NEGATIVE Urine Glucose (UA) NEGATIVE Urine Ketones NEGATIVE Urine Blood NEGATIVE Urine Nitrite NEGATIVE Ur Leukocyte Esterase NEGATIVE Urine WBC (Auto) 3 Urine RBC (Auto) 1 08/18/18 08/18/18 05:57 05:57 WBC 13.3 H RBC 4.40 Hgb 14.0 Hct 41.3 MCV 94 MCH 31.7 MCHC 33.8 RDW 17.9 H Plt Count 114 L Seg Neutrophils % Not Reportable Lymphocytes % Not Reportable Monocytes % Not Reportable Eosinophils % Not Reportable Basophils % Not Reportable Absolute Neutrophils Not Reportable Absolute Lymphocytes Not Reportable Absolute Monocytes Not Reportable Absolute Eosinophils Not Reportable Absolute Basophils Not Reportable Sodium 138.4 Potassium 5.5 H Chloride 107 Carbon Dioxide 16 L Anion Gap 15 BUN 86 H Creatinine 2.09 H Est GFR ( Amer) 38 L Est GFR (Non-Af Amer) 31 L Glucose 110 Calcium 9.2 Total Bilirubin 8.4 H AST 177 H ALT 44 Alkaline Phosphatase 318 H Total Protein 7.0 Albumin 2.7 L Urine Color Urine Appearance Urine pH Ur Specific [place] Urine Protein Urine Glucose (UA) Urine Ketones Urine Blood Urine Nitrite Ur Leukocyte Esterase Urine WBC (Auto) Urine RBC (Auto) Impressions: Abdomen/Pelvis CT 08/17/18 00:00 IMPRESSION: While there is mild distention of the colon, no discrete transition point. Liquefied stool and gas throughout the colon. Findings favor colonic ileus with partial or incomplete obstruction not excluded entirely. Close follow-up recommended. Extensive hepatic metastases. Partial visualization of necrotic, likely metastatic lymph nodes within the mediastinum. Small bibasilar effusions, greater on the right with consolidative change in the posterior right lung base. Nonenlarged but conspicuous lymph nodes in the upper abdomen. Diffuse anasarca. Small volume of ascites. TECHNICAL DOCUMENTATION: Quality ID # 436: Final reports with documentation of one or more dose reduction techniques (e.g., Automated exposure control, adjustment of the mA and/or kV according to patient size, use of iterative reconstruction technique) copyright 2011 [employer]- All Rights Reserved Abdomen X-Ray 08/17/18 14:48 IMPRESSION: Right basilar infiltrate. Gaseous distention of descending and proximal sigmoid colon. The possibility of distal colonic obstruction or sigmoid volvulus could not be excluded. Consider CT of abdomen and pelvis with contrast. Chest X-Ray 08/17/18 14:48 IMPRESSION: 1. Low lung volumes with right lower lobe consolidation versus atelectasis. 2. Gaseous distension of the splenic flexure and descending colon. Status: Image reviewed by me Assessment & Plan - Diagnosis (1) Stage IV carcinoma of colon Is this a current diagnosis for this admission?: Yes Plan: Stage IV colon cancer with overt liver failure now, looking at patient concerned that he is actively dying and does not have more than a few days to live. I discussed this frankly with the , but unfortunately I do not think she has much of a relationship with the rest of his family and is concerned that she sandra l make the wrong decision. But she would like him to be comfortable. I will try and talk with her further along with his nondenominational friends to see if some sort of decision could be made. But as of now he remains full code. - Time Time Spent: Greater than 70 Minutes - Inpatient Certification Based on my medical assessment, after consideration of the patient's comorbidities, presenting symptoms, or acuity I expect that the services needed warrant INPATIENT care.: Yes I certify that my determination is in accordance with my understanding of Medicare's requirements for reasonable and necessary INPATIENT services [42 CFR 412.3e].: Yes Medical Necessity: Need For IV Fluids, Need for Pain Control, Risk of Complication if Not Cared For in Hospital
--- NOTE | 2018-08-18 13:17 | PDOC PROGRESS REPORT ---
Subjective Progress Note for:: 08/18/18 Subjective:: 08/18/2018 72-year-old male with stage IV colon cancer with widespread metastasis getting oral chemotherapy admitted for generalized weakness shortness of breath and abdominal distention. In the emergency room initially the were requested for hospice consult and plans to take him back home but patient said he does not want any hospice does not want to be DNR/DNI so he was admitted to the hospital for further management. During the evaluation he was found to have bilateral lower lobe infiltrates with effusion, widespread metastasis to the liver elevated liver enzymes and bilirubin was elevated indicating overt liver failure. Dr. Aquino the oncologist saw the patient this morning and recommended to keep him n.p.o. and stop all chemotherapy at this time. Try to talk to the patient but patient is communicating very minimal and is bedside and she is waiting for the for other family members to come to decide further plan of management. Reason For Visit: PNA, ILEUS, STAGE 4 COLON CA Physical Exam Vital Signs: Temp Pulse Resp BP Pulse Ox 98.1 F 98 16 90/62 L 95 08/18/18 11:48 08/18/18 11:48 08/18/18 11:48 08/18/18 11:48 08/18/18 11:48 Intake & Output 08/17/18 08/18/18 08/19/18 06:59 06:59 06:59 Intake Total 2300 Balance 2300 Weight 72 kg General appearance: PRESENT: other - And is comfortably in the bed looks cachectic. Head exam: PRESENT: atraumatic Eye exam: PRESENT: PERRLA Mouth exam: PRESENT: dry mucosa Neck exam: ABSENT: carotid bruit, JVD, lymphadenopathy, thyromegaly Respiratory exam: PRESENT: decreased breath sounds Cardiovascular exam: PRESENT: RRR. ABSENT: diastolic murmur, rubs, systolic murmur GI/Abdominal exam: PRESENT: other - Abdomen was soft nontender distended with sluggish bowel movements. Neurological exam: PRESENT: alert, awake, oriented to person, oriented to place, oriented to time, oriented to situation, CN II-XII grossly intact. ABSENT: motor sensory deficit Psychiatric exam: PRESENT: appropriate affect, normal mood. ABSENT: homicidal ideation, suicidal ideation Results Laboratory Results: 08/18/18 05:57 08/17/18 08/17/18 08/17/18 16:20 16:20 22:10 WBC 13.2 H RBC 4.55 Hgb 14.3 Hct 42.7 MCV 94 MCH 31.3 MCHC 33.4 RDW 17.6 H Plt Count 133 L Seg Neutrophils % Not Reportable Lymphocytes % Not Reportable Monocytes % Not Reportable Eosinophils % Not Reportable Basophils % Not Reportable Absolute Neutrophils Not Reportable Absolute Lymphocytes Not Reportable Absolute Monocytes Not Reportable Absolute Eosinophils Not Reportable Absolute Basophils Not Reportable Sodium 139.2 Potassium 4.9 Chloride 107 Carbon Dioxide 19 L Anion Gap 13 BUN 82 H Creatinine 1.71 H Est GFR ( Amer) 48 L Est GFR (Non-Af Amer) 39 L Glucose 147 H Calcium 9.7 Total Bilirubin 8.2 H AST 191 H ALT 42 Alkaline Phosphatase 346 H Total Protein 7.2 Albumin 2.9 L Urine Color BORIS Urine Appearance CLEAR Urine pH 5.0 Ur Specific [place] 1.017 Urine Protein NEGATIVE Urine Glucose (UA) NEGATIVE Urine Ketones NEGATIVE Urine Blood NEGATIVE Urine Nitrite NEGATIVE Ur Leukocyte Esterase NEGATIVE Urine WBC (Auto) 3 Urine RBC (Auto) 1 08/18/18 08/18/18 05:57 05:57 WBC 13.3 H RBC 4.40 Hgb 14.0 Hct 41.3 MCV 94 MCH 31.7 MCHC 33.8 RDW 17.9 H Plt Count 114 L Seg Neutrophils % Not Reportable Lymphocytes % Not Reportable Monocytes % Not Reportable Eosinophils % Not Reportable Basophils % Not Reportable Absolute Neutrophils Not Reportable Absolute Lymphocytes Not Reportable Absolute Monocytes Not Reportable Absolute Eosinophils Not Reportable Absolute Basophils Not Reportable Sodium 138.4 Potassium 5.5 H Chloride 107 Carbon Dioxide 16 L Anion Gap 15 BUN 86 H Creatinine 2.09 H Est GFR ( Amer) 38 L Est GFR (Non-Af Amer) 31 L Glucose 110 Calcium 9.2 Total Bilirubin 8.4 H AST 177 H ALT 44 Alkaline Phosphatase 318 H Total Protein 7.0 Albumin 2.7 L Urine Color Urine Appearance Urine pH Ur Specific [place] Urine Protein Urine Glucose (UA) Urine Ketones Urine Blood Urine Nitrite Ur Leukocyte Esterase Urine WBC (Auto) Urine RBC (Auto) Impressions: Abdomen/Pelvis CT 08/17/18 00:00 IMPRESSION: While there is mild distention of the colon, no discrete transition point. Liquefied stool and gas throughout the colon. Findings favor colonic ileus with partial or incomplete obstruction not excluded entirely. Close follow-up recommended. Extensive hepatic metastases. Partial visualization of necrotic, likely metastatic lymph nodes within the mediastinum. Small bibasilar effusions, greater on the right with consolidative change in the posterior right lung base. Nonenlarged but conspicuous lymph nodes in the upper abdomen. Diffuse anasarca. Small volume of ascites. TECHNICAL DOCUMENTATION: Quality ID # 436: Final reports with documentation of one or more dose reduction techniques (e.g., Automated exposure control, adjustment of the mA and/or kV according to patient size, use of iterative reconstruction technique) copyright 2011 [employer]- All Rights Reserved Abdomen X-Ray 08/17/18 14:48 IMPRESSION: Right basilar infiltrate. Gaseous distention of descending and proximal sigmoid colon. The possibility of distal colonic obstruction or sigmo id volvulus could not be excluded. Consider CT of abdomen and pelvis with contrast. Chest X-Ray 08/17/18 14:48 IMPRESSION: 1. Low lung volumes with right lower lobe consolidation versus atelectasis. 2. Gaseous distension of the splenic flexure and descending colon. Assessment & Plan - Diagnosis (1) Stage IV carcinoma of colon Is this a current diagnosis for this admission?: Yes Plan: 08/18/2018-patient has stage IV colon cancer diagnosed almost a year ago. Is following with oncologist in [place]. Recently he is on oral chemotherapy. The CT scan shows metastasis to the liver. The lab investigation shows over elevated failure with elevated AST ALT and bilirubin is more than 8. Dr. Aquino is following the patient. We are waiting for the family members to come to discuss about her DNR/DNI status and possible hospice referral. Overall probe prognosis is poor. Patient condition is critical. (2) Right lower lobe pneumonia Qualifiers: Pneumonia type: due to unspecified organism Qualified Code(s): J18.1 - Lobar pneumonia, unspecified organism Is this a current diagnosis for this admission?: Yes Plan: 08/18/2018-chest x-ray suggests right sided atelectasis/pneumonia may be associated with malignant effusion. Patient is on empiric antibiotic therapy. Blood cultures are pending. Patient is on cefepime and Levaquin. (3) Acute renal failure Qualifiers: Acute renal failure type: unspecified Qualified Code(s): N17.9 - Acute kidn ey failure, unspecified Is this a current diagnosis for this admission?: Yes Plan: 08/18/2018-patient's admission creatinine is 1.79 it was worsened to 2.09 today. His baseline creatinine is around 1.2. Acute renal failure may be secondary to poor oral intake patient is on IV fluids. (4) Hyperkalemia Is this a current diagnosis for this admission?: Yes Plan: 08/18/2018-the patient's potassium was sent to 5.5 today. Admission potassium level is 4.9. I repeated the stat potassium waiting for the results. Again overall prognosis and condition is poor and critical. - Time Time Spent with patient: 15-24 minutes Medications reviewed and adjusted accordingly: Yes Anticipated discharge: Hospice
--- NOTE | 2018-08-18 13:29 | Progress Note ---
Provider Note Provider Note: Had long conversation with the patient, his , as well as [employer] members who are their close friends, after long discussion, patient agreed to a DNR as well as comfort care measures only. Today I DC'd all unnecessary medications continued only morphine and Ativan as needed. I do believe most likely he would pass in the next 24-48 hours. The as well as family were adamant about not taking the patient home for home hospice, therefore if he does not pass in the next 24 hours we will need to look into inpatient hospice setting, he would be an inpatient hospice candidate. Currently though, I do not believe he is stable enough to transfer to hospice center.
[2018-08-19] MEDS: LORAZEPAM INJ 2 MG/1 ML VIAL IV PRN (00:18)
[2018-08-19] MEDS: IPRATROPIUM/ALBUTEROL 0.5-2.5 MG/3 ML AMPUL NEB SCH ×4 (01:47→19:23)
[2018-08-19] MEDS: HYDROMORPHONE HCL INJ/PF 2 MG/ML AMPULE SUBCUT PRN ×3 (04:44→20:44)
--- NOTE | 2018-08-19 08:04 | PDOC PROGRESS REPORT ---
Subjective Progress Note for:: 08/19/18 Reason For Visit: PNA, ILEUS, STAGE 4 COLON CA Physical Exam Vital Signs: Temp Pulse Resp BP Pulse Ox 98.1 F 10 L 14 90/62 L 94 08/18/18 11:48 08/19/18 07:00 08/19/18 01:47 08/18/18 11:48 08/19/18 01:47 Intake & Output 08/18/18 08/19/18 08/20/18 06:59 06:59 06:59 Intake Total 2300 1000 Output Total 350 Balance 2300 650 Weight 72 kg 72 kg General appearance: PRESENT: no acute distress Head exam: PRESENT: atraumatic Mouth exam: PRESENT: dry mucosa Respiratory exam: PRESENT: accessory muscle use, prolonged expiratory phas Cardiovascular exam: PRESENT: bradycardia GI/Abdominal exam: PRESENT: distended, firm Rectal exam: PRESENT: deferred Neurological exam: PRESENT: altered Results Laboratory Results: 08/18/18 05:57 08/18/18 12:52 08/18/18 08/18/18 05:57 12:52 WBC 13.3 H RBC 4.40 Hgb 14.0 Hct 41.3 MCV 94 MCH 31.7 MCHC 33.8 RDW 17.9 H Plt Count 114 L Potassium 5.7 H Impressions: Abdomen/Pelvis CT 08/17/18 00:00 IMPRESSION: While there is mild distention of the colon, no discrete transition point. Liquefied stool and gas throughout the colon. Findings favor colonic ileus with partial or incomplete obstruction not excluded entirely. Close follow-up recommended. Extensive hepatic metastases. Partial visualization of necrotic, likely metastatic lymph nodes within the mediastinum. Small bibasilar effusions, greater on the right with consolidative change in the posterior right lung base. Nonenlarged but conspicuous lymph nodes in the upper abdomen. Diffuse anasarca. Small volume of ascites. TECHNICAL DOCUMENTATION: Quality ID # 436: Final reports with documentation of one or more dose reduction techniques (e.g., Automated exposure control, adjustment of the mA and/or kV according to patient size, use of iterative reconstruction technique) copyright 2011 [employer]- All Rights Reserved Abdomen X-Ray 08/17/18 14:48 IMPRESSION: Right basilar infiltrate. Gaseous distention of descending and proximal sigmoid colon. The possibility of distal colonic obstruction or sigmoid volvulus could not be excluded. Consider CT of abdomen and pelvis with contrast. Chest X-Ray 08/17/18 14:48 IMPRESSION: 1. Low lung volumes with right lower lobe consolidation versus atelectasis. 2. Gaseous distension of the splenic flexure and descending colon. Assessment & Plan - Diagnosis (1) Stage IV carcinoma of colon Is this a current diagnosis for this admission?: Yes Plan: Pt on comfort measures now, today had long discussion w/ about possible timeline going forward, cont inpt hospice care, spent >40 min in discussion today - Time Time Spent with patient: 35 or more minutes - Inpatient Certification Medical Necessity: Need for Pain Control
[2018-08-19 08:33] VITALS: BP 87/50
[2018-08-19] MEDS ORDERED: REGORAFENIB PO SCH (10:00)
[2018-08-19] MEDS ORDERED: SENNOSIDES/DOCUSATE 8.6-50 MG 1 EACH TABLET PO SCH (10:00)
[2018-08-19 10:32] LABS: PATH REVIEW PATHOLOGIST REVIEWED
--- NOTE | 2018-08-19 13:10 | PDOC PROGRESS REPORT ---
Subjective Progress Note for:: 08/19/18 Subjective:: 08/18/2018 72-year-old male with stage IV colon cancer with widespread metastasis getting oral chemotherapy admitted for generalized weakness shortness of breath and abdominal distention. In the emergency room initially the were requested for hospice consult and plans to take him back home but patient said he does not want any hospice does not want to be DNR/DNI so he was admitted to the hospital for further management. During the evaluation he was found to have bilateral lower lobe infiltrates with effusion, widespread metastasis to the liver elevated liver enzymes and bilirubin was elevated indicating overt liver failure. Dr. Aquino the oncologist saw the patient this morning and recommended to keep him n.p.o. and stop all chemotherapy at this time. Try to talk to the patient but patient is communicating very minimal and is bedside and she is waiting for the for other family members to come to decide further plan of management. 08/19/2018 family and patient decided to be under comfort care measures only and is going to be he is DNR/DNI now on the said she wants to keep him here for the time being she does not want to take him to home or any other send him to hospice. Reason For Visit: PNA, ILEUS, STAGE 4 COLON CA Physical Exam Vital Signs: Temp Pulse Resp BP Pulse Ox 98.4 F 100 18 87/50 L 90 L 08/19/18 08:09 08/19/18 08:52 08/19/18 08:52 08/19/18 08:09 08/19/18 08:52 Intake & Output 08/18/18 08/19/18 08/20/18 06:59 06:59 06:59 Intake Total 2300 1000 Output Total 350 Balance 2300 650 Weight 72 kg 72 kg General appearance: PRESENT: no acute distress Head exam: PRESENT: atraumatic Eye exam: PRESENT: PERRLA Neck exam: ABSENT: carotid bruit, JVD, lymphadenopathy, thyromegaly Respiratory exam: PRESENT: clear to auscultation leonila. ABSENT: rales, rhonchi, wheezes Cardiovascular exam: PRESENT: RRR. ABSENT: diastolic murmur, rubs, systolic murmur GI/Abdominal exam: PRESENT: normal bowel sounds, soft. ABSENT: distended, guarding, mass, organolmegaly, rebound, tenderness Neurological exam: PRESENT: other - Patient is comfortably resting and not responding well to the verbal communication. Results Laboratory Results: 08/18/18 05:57 08/18/18 12:52 08/18/18 12:52 Potassium 5.7 H Impressions: Abdomen/Pelvis CT 08/17/18 00:00 IMPRESSION: While there is mild distention of the colon, no discrete transition point. Liquefied stool and gas throughout the colon. Findings favor colonic ileus with partial or incomplete obstruction not excluded entirely. Close follow-up recommended. Extensive hepatic metastases. Partial visualization of necrotic, likely metastatic lymph nodes within the mediastinum. Small bibasilar effusions, greater on the right with consolidative change in the posterior right lung base. Nonenlarged but conspicuous lymph nodes in the upper abdomen. Diffuse anasarca. Small volume of ascites. TECHNICAL DOCUMENTATION: Quality ID # 436: Final reports with documentation of one or more dose reduction techniques (e.g., Automated exposure control, adjustment of the mA and/or kV according to patient size, use of iterative reconstruction technique) copyright 2011 [employer]- All Rights Reserved Abdomen X-Ray 08/17/18 14:48 IMPRESSION: Right basilar infiltrate. Gaseous distention of descending and proximal sigmoid colon. The possibility of distal colonic obstruction or sigmoid volvulus could not be excluded. Consider CT of abdomen and pelvis with contrast. Chest X-Ray 08/17/18 14:48 IMPRESSION: 1. Low lung volumes with right lower lobe consolidation versus atelectasis. 2. Gaseous distension of the splenic flexure and descending colon. Assessment & Plan - Diagnosis (1) Stage IV carcinoma of colon Is this a current diagnosis for this admission?: Yes Plan: 08/18/2018-patient has stage IV colon cancer diagnosed almost a year ago. Is f luis with oncologist in [place]. Recently he is on oral chemotherapy. The CT scan shows metastasis to the liver. The lab investigation shows over elevated failure with elevated AST ALT and bilirubin is more than 8. Dr. Aquino is following the patient. We are waiting for the family members to come to discuss about her DNR/DNI status and possible hospice referral. Overall probe prognosis is poor. Patient condition is critical. 08/19/2018-patient has history of stage IV colon cancer with metastasis oncology consult was done. Family decided for comfort care measures only. (2) Right lower lobe pneumonia Qualifiers: Pneumonia type: due to unspecified organism Qualified Code(s): J18.1 - Lobar pneumonia, unspecified organism Is this a current diagnosis for this admission?: Yes Plan: 08/18/2018-chest x-ray suggests right sided atelectasis/pneumonia may be associated with malignant effusion. Patient is on empiric antibiotic therapy. Blood cultures are pending. Patient is on cefepime and Levaquin. 08/19/2018-patient has right-sided lower lobe pneumonia. Patient is on comfort care measures only all measures including antibiotics were discontinued. (3) Acute renal failure Qualifiers: Acute renal failure type: unspecified Qualified Code(s): N17.9 - Acute kidney failure, unspecified Is this a current diagnosis for this admission?: Yes (4) Hyperkalemia Is this a current diagnosis for this admission?: Yes - Time Time Spent with patient: Less than 15 minutes Anticipated discharge: Hospice
[2018-08-20] MEDS: LORAZEPAM INJ 2 MG/1 ML VIAL IV PRN (02:27)
[2018-08-20] MEDS: IPRATROPIUM/ALBUTEROL 0.5-2.5 MG/3 ML AMPUL NEB SCH ×2 (02:53→08:38)
[2018-08-20] MEDS: HYDROMORPHONE HCL INJ/PF 2 MG/ML AMPULE SUBCUT PRN (05:07)
[2018-08-20] MEDS ORDERED: LORAZEPAM INJ 2 MG/1 ML VIAL IV PRN (07:35)
[2018-08-20] MEDS ORDERED: HYDROMORPHONE HCL INJ/PF 2 MG/ML AMPULE IV PRN (07:35)
--- NOTE | 2018-08-20 14:20 | Death Summary ---
Summary Date : 08/20/18 Time of :: 09:14 Autopsy: No Resuscitation Status: Comfort Measures Only - Final Diagnosis (1) Stage IV carcinoma of colon Is this a current diagnosis for this admission?: Yes (2) Right lower lobe pneumonia Is this a current diagnosis for this admission?: Yes (3) Acute renal failure Is this a current diagnosis for this admission?: Yes (4) Hyperkalemia Is this a current diagnosis for this admission?: Yes Hospital Course:: 08[birth year]20/[birth year]89 year old male with a past medical history of stage IV colorectal cancer with widespread metastasis undergoing oral chemotherapy with Dr. Hollingsworth in [place]. He presents with generalized weakness, shortness of breath and abdominal distention. Patient is extremely ill appearing cachectic with temporal wasting. requests hospice consult in the emergency room but ultimately declined by the patient. Workup reveals bilateral lower lobe infiltrate with effusion, widespread metastasis of the liver, liquefied stool in the colon with gas suggesting ileus. He receives empiric antibiotics and Dilaudid and referred to the hospitalist for admission. Patient is currently sedated and comfortable but unable to cooperate in exam. [facility] from [facility] requested. Patient was admitted on 08/18/2018-patient came into the ER with complaints of generalized weakness abdominal distention and increasing shortness of breath initially requested for hospice consult but the patient does not want to be under hospice does not want to be on DNR then he was admitted for further management. During the evaluation in the ER found to have bilateral lobe infiltrates with effusion. Also has widespread metastasis to the liver with elevated liver enzymes and bilirubin I did abdominal ultrasound was done and the cholecystitis was ruled out. Dr. Aquino the oncologist was consulted and he agreed to see the patient and also requested to stop all the chemotherapy. According to the family patient is following up with the oncologist in [place] is getting oral chemotherapy. As per the oncologist recommendations he will be stopped triple chemotherapy. Next day Dr. Aquino and me spoke to the family members including the and explained to them in detail about the poor prognosis and in critical condition. The family finally decided to make him DNR and requested for comfort care measures only. As per the family request all the active measures were discontinued and patient was placed on IV pain medications and IV anxiety medications for pain relief and anxiety relief relief. And peacefully around 9:34 AM today on 08/20/2018. Body was released to the home. Family does not want any autopsy.
== END 2018-08-20 12:25 | DRG 194 ==
LOC: ER 13:14 → EH 08-18 00:22 → 4S 08-18 03:00
PROVIDERS: ADMIT Internal Medicine; ATTEND Internal Medicine
DX: J18.9 Pneumonia, unspecified organism (principal); N17.9 Acute kidney failure, unspecified; C19 Malignant neoplasm of rectosigmoid junction; C78.7 Secondary malignant neoplasm of liver and intrahepatic bile duct; C77.2 Secondary and unspecified malignant neoplasm of intra-abdominal lymph nodes; R64 Cachexia; K56.7 Ileus, unspecified; Z87.891 Personal history of nicotine dependence; Z74.01 Bed confinement status; Z79.899 Other long term (current) drug therapy; E87.5 Hyperkalemia; Z66 Do not resuscitate; Z51.5 Encounter for palliative care; Z68.22 Body mass index [BMI] 22.0-22.9, adult
CPT/HCPCS: 36415; 36591; 51702; 71046; 74019; 74177; 80053; 81001; 84132; 85025; 87040; 94799; 96365; 96366; 96367; 96375; 96376; 99285; J0692; J1170; J1642; J1956; J2060; J2765; J3490; J7030; J7620